=== PATIENT | female | born 1950 | race Caucasian/White ===

== ENCOUNTER 2017-05-26 05:58 | Emergency (ER) | payer MEDICARE, OTHER ==
--- NOTE | 2017-05-26 06:11 | ED Physician Documentation ---
PD HPI LOWER EXT INJURY - Stated complaint Stated Complaint: RT FOOT INJURY - Chief complaint Chief Complaint: Ext Problem - History obtained from History obtained from: Patient - History of Present Illness PD HPI LOW EXT INJURY LOCATION: Right, Foot Type of injury: Blunt / blow Where injury occurred: Home Timing - onset: How many hours ago (1) Timing - details: Abrupt onset Pain level now: 6 Improved by: Rest Worsened by: Moving, Palpating Associated symptoms: Swelling Contributing factors: Prior ortho surgery Recently seen: Not recently seen - Additional information Additional information: patient complains of right foot pain. Approximately one hour prior to arrival, door fell off of its hinges and landed on patients right foot. Review of Systems Skin: reports: Laceration (s) Musculoskeletal: reports: Extremity pain, Extremity swelling, Pain with weight bearing Neurologic: denies: Focal weakness, Numbness PD PAST MEDICAL HISTORY - Past Medical History Past Medical History: Yes Cardiovascular: Hypertension Respiratory: None Neuro: None Endocrine/Autoimmune: Type 2 diabetes GI: None SECURE SOFTWARE ASSESSOR: None : None HEENT: None Psych: None Musculoskeletal: None Derm: None - Past Surgical History Past Surgical History: No - Present Medications Home Medications: Ambulatory Orders Medication Instructions Recorded Confirmed Cephalexin [Keflex] 500 mg PO Q6HR 5 Days #20 capsule 05/26/17 HYDROcod/ACETAM 5/325 [[place] 5/325] 1 - 2 ea PO Q6H PRN #15 tablet 05/26/17 - Allergies Allergies/Adverse Reactions: Allergies Allergy/AdvReac Type Severity Reaction Status Date / Time banana AdvReac Anaphylaxis Verified 05/26/17 06:09 Sulfa (Sulfonamide AdvReac Itching Verified 05/26/17 06:09 Antibiotics) - Social History Does the pt smoke?: No Smoking Status: Never smoker Does the pt drink ETOH?: No Does the pt have substance abuse?: No - Immunizations Immunizations are current?: Yes - POLST Patient has POLST: No PD ED PE NORMAL - Vitals Vital signs reviewed: Yes - General General: Alert and oriented X 3, No acute distress, Well developed/nourished - Neuro Neuro: No motor deficit, No sensory deficit PD ED PE EXPANDED - Extremities Extremities: Tenderness, Limited ROM, Swelling, Bruising, Laceration Feet visual: 1 - bruising, swelling, tenderness 2 - laceration (1 cm) 3 - laceration (0.5 cm) Results - Vitals Vitals: Vital Signs - 24 hr 05/26/17 05/26/17 05/26/17 06:04 07:48 09:10 Temperature 35.6 C L 36.4 C L 35.2 C L Heart Rate 85 77 56 L Respiratory 17 16 20 Rate Blood Pressure 165/99 H 169/97 H 112/63 O2 Saturation 98 99 96 Oxygen O2 Source Room air - Rads (name of study) right foot xrays Radiology: Prelim report reviewed, See rad report PD MEDICAL DECISION MAKING - ED course Complexity details: reviewed results, re-evaluated patient, considered differential, d/w patient, d/w [facility] operations consultant (Dr. Sutherland (recommends traction to improve alignment of 2nd toe fracture, then daja tape toes 1-3, post-op shoe, discharge and &/7. also 5 days of abx. coverage)) ED course: prior to daja tape and splint, patient given 2 vicodin. after adequate time for this to take effect, I applied gentle traction to second toe and this resulted in lengthening of the toe and good alignment visually. tech applied steri-strips to the two lacerations. patient says she tried to use crutches prior to coming to ED and felt very unsteady on them. thus, a cane was provided prior to discharge. post op shoe placed as well. patient had brief nausea and one episode emesis after vicodin, thus given TL zofran Departure - Departure Disposition: 01 Home, Self Care Clinical Impression: Fracture of foot Condition: Good Instructions: ED Fx Foot Follow-Up: Stefano Sutherland MD [Provider Admit Priv/Credential] - Within 3 Days Prescriptions: Cephalexin [Keflex] 500 mg PO Q6HR 5 Days #20 capsule HYDROcod/ACETAM 5/325 [[place] 5/325] 1 - 2 ea PO Q6H PRN #15 tablet PRN Reason: Pain Discharge Date/Time: 05/26/17 09:15
--- NOTE | 2017-05-26 07:08 | XRAY Preliminary Report ---
Exam: XR FOOT 3 VIEW RT IMPRESSION: 1. Comminuted, displaced fracture of the first distal phalanx. 2. Comminuted, displaced, intra-articular fracture of the second proximal phalanx. 3. Comminuted intra-articular fracture of the third proximal phalanx. 4. Nondisplaced fracture of the distal third metatarsal. [facility] SITE ID: [id number]
--- NOTE | 2017-05-26 07:11 | XRAY Report ---
EXAM: RIGHT FOOT RADIOGRAPHY EXAM DATE: 05/26/2017 06:49 AM. CLINICAL HISTORY: Injury, pain, swelling, tenderness. Door fell on foot. COMPARISON: None. TECHNIQUE: 3 views. FINDINGS: Bones: Comminuted, displaced fractures through the midportion of the first distal phalanx and base of the second proximal phalanx. Comminuted fracture of the third proximal phalanx without significant d isplacement. Nondisplaced fracture of the distal third metatarsal with mild angulation. The second an d third proximal phalangeal fractures extend to the articular surface of the MTP joint. Surgical scre ws in the distal first and second metatarsals are without evidence of loosening or failure. Joints: No dislocation. Soft Tissues: Soft tissue swelling about the forefoot. IMPRESSION: 1. Comminuted, displaced fracture of the first distal phalanx. 2. Comminuted, displaced, intra-articular fracture of the second proximal phalanx. 3. Comminuted intra-articular fracture of the third proximal phalanx. 4. Nondisplaced fracture of the distal third metatarsal. [facility] Referring Provider Line: [phone] SITE ID: [id number]
[2017-05-26] MEDS ORDERED: HYDROcod/ACETAM 5/325 MG TABLET PO STA (07:51)
[2017-05-26] MEDS ORDERED: CEPHALEXIN 250 MG CAPSULE PO STA (07:53)
[2017-05-26] MEDS ORDERED: HYDROcod/ACETAM 5/325 MG TABLET ONE (07:56)
[2017-05-26] MEDS ORDERED: CEPHALEXIN 250 MG CAPSULE PO ONE (08:00)
[2017-05-26] MEDS ORDERED: ONDANSETRON ODT 4 MG TABLET TL STA (08:45)
[2017-05-26] MEDS ORDERED: ONDANSETRON ODT 4 MG TABLET ONE (08:53)
[2017-05-26 09:11] VITALS: BP 112/63
== END 2017-05-26 09:15 | disposition home or self-care (01) ==
LOC: ED 05:58
DX: S92.901A Unspecified fracture of right foot, initial encounter for closed fracture (principal); W22.8XXA Striking against or struck by other objects, initial encounter; Y92.009 Unspecified place in unspecified non-institutional (private) residence as the place of occurrence of the external cause; I10 Essential (primary) hypertension; E11.9 Type 2 diabetes mellitus without complications
CPT/HCPCS: 73630; 99283; A9270; Q0162

== ENCOUNTER 2017-10-09 15:46 | Outpatient (CLI) | payer MEDICARE, OTHER ==
--- NOTE | 2017-10-09 16:35 | XRAY Report ---
EXAM: CHEST RADIOGRAPHY EXAM DATE: 10/09/2017 04:04 PM. CLINICAL HISTORY: COUGH X 3WEEKS, CRACKLES ON RIGHT, EVAL FOR PNEUMO. COMPARISON: None. TECHNIQUE: 2 views. FINDINGS: Lungs/Pleura: There is mild lower lobe airway thickening. No consolidative process or focal pneumonia . Negative for pleural effusion and pneumothorax. Mediastinum: Heart and mediastinal contours are unremarkable. Other: None. IMPRESSION: Lower lobe airway thickening without consolidative focal pneumonia. [facility] Referring Provider Line: [phone] SITE ID: [id number]
== END 2017-10-09 15:47 | disposition home or self-care (01) ==
LOC: DI.S 15:46
PROVIDERS: ATTEND Registered Nurse
DX: R05 Cough (principal); R09.89 Other specified symptoms and signs involving the circulatory and respiratory systems
CPT/HCPCS: 71046

== ENCOUNTER 2017-11-23 10:14 | Outpatient (CLI) | payer MEDICARE, OTHER ==
--- NOTE | 2017-11-23 12:42 | XRAY Report ---
TWO VIEW CHEST: 11/23/2017 CLINICAL INDICATION: Bronchitis. COMPARISON: 10/09/2017. FINDINGS: Frontal and lateral views of the chest demonstrate a normal cardiac silhouette. The lungs are clear. No effusion or pneumothorax is present. IMPRESSION: NORMAL CHEST. TD: 11/23/2017 12:42
== END 2017-11-23 10:15 | disposition home or self-care (01) ==
LOC: DI.S 10:14
PROVIDERS: ATTEND Registered Nurse
DX: J20.9 Acute bronchitis, unspecified (principal)
CPT/HCPCS: 71046

== ENCOUNTER 2018-04-22 08:50 | Outpatient (CLI) | payer MEDICARE, OTHER ==
[2018-04-22 11:27] LABS: HB2 TOTAL 15.1 g/dL; HEMOGLOBIN A1C 1.01 g/dL; HEMOGLOBIN A1C % 8.3 % (4.6-6.2)
== END 2018-04-22 08:51 | disposition home or self-care (01) ==
LOC: LAB.F 08:50
PROVIDERS: ATTEND Registered Nurse
DX: E11.21 Type 2 diabetes mellitus with diabetic nephropathy (principal); I10 Essential (primary) hypertension; E78.1 Pure hyperglyceridemia
CPT/HCPCS: 36415; 82043; 83036

== ENCOUNTER 2019-07-14 13:38 | Outpatient (CLI) | payer MEDICARE, OTHER ==
--- NOTE | 2019-07-18 08:50 | DEXA Report ---
Reason: ASYMPTOMATIC MENOPAUSAL STATE Procedure Date: 07/14/2019 Accession Number: [id number] / [id number] Procedure: DEX - Dexa Spine and/or Hip CPT Code: Final Report FULL RESULT: EXAM: Dexa Spine and/or Hip DATE: 07/14/2019 3:16 PM CLINICAL HISTORY: ASYMPTOMATIC MENOPAUSAL STATE TECHNIQUE: Dual energy x-ray absorptiometry (DXA) was performed on a [employer] System. Regions measured are the AP Spine, femoral neck, and if needed forearm. COMPARISON: None. In accordance with the International Society for Clinical Densitometry (ISCD) guidelines, data from previous exams may be reanalyzed using current recommendations and techniques. This is done to allow a more accurate basis for comparison with the current study. FINDINGS: The data for the lumbar spine is as follows: BMD (g/cm/cm) T-SCORE Z-SCORE REGION L1 0.859 -2.3 -1.0 L2 0.873 -2.7 -1.4 L3 L4 TOTAL 0.866 -2.5 -1.2 NOTE: All evaluable vertebrae are used for classification The data for the hip is as follows: BMD (g/cm/cm) T-SCORE Z-SCORE REGION Neck 0.789 -1.8 -0.3 TOTAL 0.994 -0.1 1.1 NOTE: The femoral neck or total proximal femur, whichever is lowest, is used for classification. IMPRESSION: THE WHO CLASSIFICATION BASED ON THE INTERNATIONAL REFERENCE STANDARD IS OSTEOPOROSIS. THE FRACTURE RISK IS HIGH. Please note that 2 lumbar levels had to be excluded due to decreased mobility and that bone density in the hip suggest that the lumbar region measurement may be an over estimation. Given this, consideration for additional DEXA imaging of the forearm to increase confidence in the result could be considered if clinically indicated. RECOMMENDATION: Patients with diagnosis of osteoporosis or osteopenia should have regular bone mineral density assessment. For those eligible for Medicare, routine testing is allowed once every 2 years. Testing frequency can be increased for patients who have rapidly progressing disease or for those who are receiving medical therapy to restore bone mass. COMMENT: World Health Organization (WHO) definitions for osteoporosis and osteopenia: NORMAL BMD: T-score at -1.0 or higher, fracture risk is low OSTEOPENIA BMD: T-score between -1.0 and -2.5, fracture risk is increased. OSTEOPOROSIS BMD: T-score at -2.5 or lower, fracture risk is high. National Osteoporosis Foundation recommends: 1. Obtain adequate dietary calcium (at least 1200 mg per day) and vitamin D (400-800 international units per day). 2. Participate, as appropriate, in regular weightbearing and muscle-strengthening exercise. 3. Avoid tobacco use and reduce alcohol and caffeine intake. 4. For more detailed information see the website at www.NOF.org.
== END 2019-07-14 13:39 | disposition home or self-care (01) ==
LOC: DI 13:38
PROVIDERS: ATTEND Registered Nurse
DX: M81.0 Age-related osteoporosis without current pathological fracture (principal); Z78.0 Asymptomatic menopausal state
CPT/HCPCS: 77080

== ENCOUNTER 2019-07-14 13:40 | Outpatient (CLI) | payer MEDICARE, OTHER ==
--- NOTE | 2019-07-18 10:22 | Mammography Report ---
Reason: ROUTINE MAMMO Procedure Date: 07/14/2019 Accession Number: [id number] / [id number] Procedure: YANETH - Screening Mammo w/Dejon CPT Code: Final Report FULL RESULT: EXAM: Screening Mammo w/Dejon DATE: 07/14/2019 2:36 PM CLINICAL HISTORY: Screening encounter. Family history of breast cancer in the mother. TECHNIQUE: (B) - Bilateral CC and MLO views were obtained. COMPARISON: 01/19/2017 through 12/06/2015. PARENCHYMAL PATTERN: (D) - The breast(s) demonstrate(s) heterogeneously dense fibroglandular parenchyma. FINDINGS: Redemonstration of bilateral isodense nodules with coarse calcifications which have increased over time without interval growth in size and without architectural distortion. Greater than two-year stability and absence of microcalcifications or architectural distortion, typically benign. There are no suspicious masses, calcifications, or areas of distortion. IMPRESSION: Benign findings. BI-RADS category 2. RECOMMENDATION: (ANNUAL) - Recommend routine annual screening mammography. BI-RADS CATEGORY: (2) - Benign Findings. STANDARD QUALIFYING STATEMENTS: 1. This examination was not reviewed with the aid of Computer-Aided Detection (CAD). 2. A negative or benign imaging report should not preclude biopsy if clinically suspicious findings are present. 3. Dense breasts may obscure an underlying neoplasm. 4. This examination was reviewed with the aid of 3D breast imaging (tomosynthesis).
== END 2019-07-14 13:41 | disposition home or self-care (01) ==
LOC: DI 13:40
PROVIDERS: ATTEND Registered Nurse
DX: Z12.31 Encounter for screening mammogram for malignant neoplasm of breast (principal); Z80.3 Family history of malignant neoplasm of breast
CPT/HCPCS: 77063; 77067

== ENCOUNTER 2020-05-12 08:47 | Outpatient (CLI) | payer MEDICARE, OTHER ==
--- NOTE | 2020-05-12 17:54 | Ultrasound Report ---
PROCEDURE: Abdomen Complete INDICATIONS: HEP C, CHRONIC TECHNIQUE: Real-time scanning was performed of the abdominal and retroperitoneal organs, with image documentatio n. COMPARISON: None. FINDINGS: Liver: Diffuse increased echogenicity of the liver.. Liver length of 18.9 cm. Gallbladder: Gallbladder is distended containing multiple gallstones. Gallbladder wall thickness of 0 .3 cm. Biliary ducts: Intrahepatic bile ducts are non-dilated. Extrahepatic bile duct caliber measures mm. Normal is 6-7 mm or less in diameter, or 10 mm or less post-cholecystectomy. Pancreas: Visualized portions of the pancreas are sonographically normal. Spleen: Spleen is normal in size and homogeneous in echotexture. Kidneys: Kidneys are normal in size and echotexture. Right kidney measures 12.5 cm long; left kidne y measures 1.6 cm long. No hydronephrosis or nephrolithiasis. No solid masses. Aorta: Visualized aorta is normal in caliber at less than 3 cm. Calcific and noncalcific atheroscle rosis of the abdominal aorta. Iliacs: Proximal common iliac arteries are normal in caliber at less than 2.5 cm. IVC: Intrahepatic inferior vena cava is patent. Miscellaneous: No free abdominal fluid. IMPRESSION: 1. Cholelithiasis without findings of acute cholecystitis. 2. Diffuse increased echogenicity of the mildly enlarged liver, most commonly seen in the setting of hepatic steatosis, but can also be seen with fibrosis. 3. Calcific noncalcific atherosclerosis of the abdominal aorta. Reviewed by: Imtiaz Lieberman on 05/12/2020 4:52 PM FELIPA Approved by: Imtiaz Lieberman on 05/12/2020 4:52 PM FELIPA Station ID: [id number]
== END 2020-05-12 08:48 | disposition home or self-care (01) ==
LOC: DI 08:47
PROVIDERS: ATTEND Internal Medicine
DX: B18.2 Chronic viral hepatitis C (principal); K80.20 Calculus of gallbladder without cholecystitis without obstruction; I70.0 Atherosclerosis of aorta
CPT/HCPCS: 76700

== ENCOUNTER 2021-11-21 13:38 | Outpatient (CLI) | payer MEDICARE, OTHER | END 2021-11-21 13:39 | disposition home or self-care (01) | LOC: LAB.S 13:38 | PROVIDERS: ATTEND Registered Nurse | DX: E78.2 Mixed hyperlipidemia (principal) | CPT/HCPCS: 36415; 84478 ==

== ENCOUNTER 2022-04-22 12:52 | Outpatient (CLI) | payer MEDICARE, OTHER ==
--- NOTE | 2022-04-23 12:50 | Mammography Report ---
BILATERAL DIGITAL SCREENING MAMMOGRAM 3D/2D: 04/22/2022 CLINICAL: Routine screening. Family history of breast cancer. Comparison is made to exams dated: 07/14/2019 mammogram - [facility] and 01/19/2017 mammogram - outside location. Both breasts are heterogeneously dense, which may obscure small masses (category c / 51-75% glandula r tissue). There are new grouped fine calcifications in the right breast central to the nipple middle depth. There also are new grouped amorphous punctate calcifications in the right breast at 6 o'clock posteri or depth. No other significant masses, calcifications, or other findings are seen in either breast. IMPRESSION: INCOMPLETE: NEEDS ADDITIONAL IMAGING EVALUATION The new grouped fine calcifications in the right breast central to the nipple middle depth are indete rminate. Additional views with possible ultrasound are recommended. The new grouped amorphous punctate calcifications in the right breast at 6 o'clock posterior depth ar e indeterminate. Additional views with possible ultrasound are recommended. Based on the Tyrer Cuzick model (a risk assessment model) the patients lifetime risk is 9.1% and her 10 year risk is 7.5%. According to the ACR, ACS, and NCCN guidelines, an annual breast MRI exam silvia g with mammogram is recommended if the patients lifetime risk is 20% or greater. This exam was interpreted at Station ID: [id number]. NOTE: For mammograms, a report in lay terms will be sent to the patient. Approximately 15% of breast malignancies will not be visualized mammographically. In the management of a palpable breast mass, a negative mammogram must not discourage biopsy of a clinically suspicious lesion. Electronically Signed By: Jennifer domingo/josé miguel:04/22/2022 17:21:52 ACR BI-RADS Category 0: Incomplete 3340F PARENCHYMAL PATTERN: (D) - The breast(s) demonstrate(s) heterogeneously dense fibroglandular pargeovanyy j luis. BI-RADS CATEGORY: (0) - 0 Mammo and [place] [id number] Immediate follow-up LATERALITY: (B)
== END 2022-04-22 12:53 | disposition home or self-care (01) ==
LOC: DI.S 12:52
PROVIDERS: ATTEND Registered Nurse
DX: Z12.31 Encounter for screening mammogram for malignant neoplasm of breast (principal); R92.1 Mammographic calcification found on diagnostic imaging of breast; Z80.3 Family history of malignant neoplasm of breast

== ENCOUNTER 2022-05-14 12:26 | Outpatient (CLI) | payer MEDICARE, OTHER ==
--- NOTE | 2022-05-15 11:29 | Mammography Report ---
UNILATERAL RIGHT DIGITAL DIAGNOSTIC MAMMOGRAM 3D/2D WITH MAGNIFICATION: 05/14/2022 CLINICAL: Patient returns for magnification views of microcalcifications in the right breast. Comparison is made to exams dated: 04/22/2022 mammogram, 07/14/2019 mammogram - [facility], and 01/19/2017 mammogram - outside location. The right breast is heterogeneously dense, which may obscure small masses (category c / 51-75% gland ular tissue). There are grouped fine calcifications in the right breast central to the nipple middle depth. There also are grouped amorphous punctate calcifications in the right breast at 6 o'clock posterior d epth. No other significant masses or calcifications are seen in the breast. IMPRESSION: PROBABLY BENIGN The grouped fine calcifications in the right breast central to the nipple middle depth are probably b enign. A follow-up mammogram in 6 months is recommended. The grouped amorphous punctate calcifications in the right breast at 6 o'clock posterior depth are pr obably benign. A follow-up mammogram in 6 months is recommended. A follow-up mammogram in 6 months is recommended to demonstrate stability. Based on the Tyrer Cuzick model (a risk assessment model) the patients lifetime risk is 8.5% and her 10 year risk is 7.7%. According to the ACR, ACS, and NCCN guidelines, an annual breast MRI exam silvia g with mammogram is recommended if the patients lifetime risk is 20% or greater. This exam was interpreted at Station ID: [id number]. NOTE: For mammograms, a report in lay terms will be sent to the patient. Approximately 15% of breast malignancies will not be visualized mammographically. In the management of a palpable breast mass, a negative mammogram must not discourage biopsy of a clinically suspicious lesion. Electronically Signed By: Olaf Patel M.D., jr/josé miguel:05/14/2022 12:57:50 ACR BI-RADS Category 3: Probably benign 3343F PARENCHYMAL PATTERN: (D) - The breast(s) demonstrate(s) heterogeneously dense fibroglandular parenchy ma. BI-RADS CATEGORY: (3) - 3 Mammogram [id number] 6 month follow-up LATERALITY: (B)
== END 2022-05-14 12:27 | disposition home or self-care (01) ==
LOC: DI 12:26
PROVIDERS: ATTEND Registered Nurse
DX: R92.1 Mammographic calcification found on diagnostic imaging of breast (principal)

== ENCOUNTER 2022-06-05 12:32 | Outpatient (CLI) | payer MEDICARE, OTHER ==
--- NOTE | 2022-06-05 14:50 | XRAY Report ---
PROCEDURE: Toe(s) RT INDICATIONS: PRIORS 2017/WOUND OF 4TH TOE RIGHT FOOT/PER PT LOTS OF WALKING ABOUT 2 MONTHS AGO WOUND /CALLUS DORSAL 4TH TOE AND PAINFUL WALKING SINCE/PER PROVIDER:EVALUATE FOR ANY EVIDENCE OF OSTEOMYELI TIS TECHNIQUE: 3 views of the right fourth toe(s) acquired. COMPARISON: None FINDINGS: Bones: No fractures or dislocations. No suspicious bony lesions. There are screws within the first and second digits. Soft tissues: No suspicious soft tissue densities. IMPRESSION: No acute fracture. No osseous lesion. If symptoms and/or clinical suspicion for pathology continue, f urther assessment with repeat plain films, or advanced imaging (e.g., CT, MRI, or bone scan) is recom mended for further assessment. Reviewed by: Sami Gong MD on 06/05/2022 2:48 PM PDT Approved by: Sami Gong MD on 06/05/2022 2:48 PM PDT Station ID: [id number]
== END 2022-06-05 12:33 | disposition home or self-care (01) ==
LOC: DI.S 12:32
PROVIDERS: ATTEND Registered Nurse
DX: E11.621 Type 2 diabetes mellitus with foot ulcer (principal); L97.519 Non-pressure chronic ulcer of other part of right foot with unspecified severity

== ENCOUNTER 2022-09-16 15:01 | Outpatient (CLI) | payer MEDICARE, OTHER ==
--- NOTE | 2022-09-16 18:57 | Ultrasound Report ---
PROCEDURE: Duplex Lwr Ext Arterial RT INDICATIONS: TYPE 2 DIABETES MELLITUS WITH FOOT ULCER TECHNIQUE: Color and pulse Doppler interrogation was performed of the right lower extremity arterial system, wit h image documentation. COMPARISON: None FINDINGS: Common femoral artery: 86 cm/sec, with biphasic flow. Deep femoral artery: 46 cm/sec, with biphasic flow. Proximal superficial femoral artery: 108 cm/sec, with triphasic flow. Mid superficial femoral artery: 84 cm/sec, with triphasic flow. Distal superficial femoral artery: 83 cm/sec, with biphasic flow. Popliteal artery: 78 cm/sec, with triphasic flow. Posterior tibial artery: 56 cm/sec, with triphasic flow. Anterior tibial artery/dorsalis pedis: 91/43 cm/sec, with triphasic/monophasic flow. [place]-scale imaging description: Calcified plaque. No significant stenosis from the common femoral th rough the popliteal. IMPRESSION: 1. No evidence of inflow stenosis. 2. No stenosis identified from the common femoral through the popliteal. 3. 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 Reviewed by: Luigi Wilson MD on 09/16/2022 6:55 PM PST Approved by: Luigi Wilson MD on 09/16/2022 6:55 PM PST Station ID: [id number]
== END 2022-09-16 15:02 | disposition home or self-care (01) ==
LOC: DI 15:01
PROVIDERS: ATTEND Family Medicine
DX: E11.621 Type 2 diabetes mellitus with foot ulcer (principal); L97.512 Non-pressure chronic ulcer of other part of right foot with fat layer exposed; M20.5X1 Other deformities of toe(s) (acquired), right foot; L53.9 Erythematous condition, unspecified

== ENCOUNTER 2022-12-11 09:36 | Outpatient (CLI) | payer MEDICARE, OTHER ==
--- NOTE | 2022-12-12 11:09 | Mammography Report ---
UNILATERAL RIGHT DIGITAL DIAGNOSTIC MAMMOGRAM 3D/2D WITH MAGNIFICATION: 12/11/2022 CLINICAL: Patient returns for a 6 month follow up of the right breast. Comparison is made to exams dated: 05/14/2022 mammogram, 04/22/2022 mammogram, and 07/14/2019 mammogram - [facility]. The right breast is heterogeneously dense, which may obscure small masses (category c / 51-75% glandu lar tissue). There are stable grouped calcifications in the right breast central to the nipple middle depth. There also are stable grouped calcifications in the right breast at 6 o'clock posterior depth. No other significant masses or calcifications are seen in the breast. IMPRESSION: PROBABLY BENIGN The stable grouped calcifications in the right breast central to the nipple middle depth are probably benign. A follow-up mammogram in 6 months is recommended. The stable grouped calcifications in the right breast at 6 o'clock posterior depth are probably benig n. A follow-up mammogram in 6 months is recommended. Based on the Tyrer Cuzick model (a risk assessment model) the patients lifetime risk is 8.5% and her 10 year risk is 7.7%. According to the ACR, ACS, and NCCN guidelines, an annual breast MRI exam silvia g with mammogram is recommended if the patients lifetime risk is 20% or greater. This exam was interpreted at Station ID: [id number]. NOTE: For mammograms, a report in lay terms will be sent to the patient. Approximately 15% of breast malignancies will not be visualized mammographically. In the management of a palpable breast mass, a negative mammogram must not discourage biopsy of a clinically suspicious lesion. Electronically Signed By: Andrea Soto M.D. lc/:12/11/2022 10:27:43 ACR BI-RADS Category 3: Probably benign 3343F PARENCHYMAL PATTERN: (D) - The breast(s) demonstrate(s) heterogeneously dense fibroglandular parenrico dietz. BI-RADS CATEGORY: (3) - 3 Mammogram [id number] 6 month follow-up LATERALITY: (B)
== END 2022-12-11 09:37 | disposition home or self-care (01) ==
LOC: DI 09:36
PROVIDERS: ATTEND Registered Nurse
DX: R92.1 Mammographic calcification found on diagnostic imaging of breast (principal)

== ENCOUNTER 2023-06-22 11:14 | Outpatient (CLI) | payer MEDICARE, OTHER ==
--- NOTE | 2023-06-23 16:14 | Mammography Report ---
BILATERAL DIGITAL DIAGNOSTIC MAMMOGRAM 3D/2D WITH MAGNIFICATION: 06/22/2023 CLINICAL: Patient returns for 6 month follow up on right breast calcifications. Due for bilateral. Comparison is made to exams dated: 12/11/2022 mammogram, 05/14/2022 mammogram, 04/22/2022 mammogram, and 07/14/2019 mammogram - [facility]. Both breasts are heterogeneously dense, which may obscure small masses (category c / 51-75% glandular tissue). There are stable grouped calcifications in the right breast central to the nipple middle depth. There also are grouped calcifications in the right breast at 6 o'clock posterior depth. No other significant masses, calcifications, or other findings are seen in either breast. IMPRESSION: PROBABLY BENIGN Right breast grouped calcifications central to the nipple middle depth and at 6 o'clock posterior dep th, stable since 05/14/2022. Findings are probably benign. Recommend follow-up mammogram in 12 months to demonstrate 2 year stability. Patient will be due for bilateral mammogram at that time. Findings and recommendations were conveyed to the patient during today's evaluation. Based on the Tyrer Cuzick model (a risk assessment model) the patients lifetime risk is 7.9% and her 10 year risk is 7.9%. According to the ACR, ACS, and NCCN guidelines, an annual breast MRI exam silvia g with mammogram is recommended if the patients lifetime risk is 20% or greater. This exam was interpreted at Station ID: [id number]. NOTE: For mammograms, a report in lay terms will be sent to the patient. Approximately 15% of breast malignancies will not be visualized mammographically. In the management of a palpable breast mass, a negative mammogram must not discourage biopsy of a clinically suspicious lesion. Electronically Signed By: Narcisa Bruner M.D., PH.D eb/:06/22/2023 12:29:11 ACR BI-RADS Category 3: Probably benign 3343F PARENCHYMAL PATTERN: (D) - The breast(s) demonstrate(s) heterogeneously dense fibroglandular pargeovanyy ma. BI-RADS CATEGORY: (3) - 3 Mammogram [id number] 12 month follow-up LATERALITY: (B)
== END 2023-06-22 11:15 | disposition home or self-care (01) ==
LOC: DI 11:14
PROVIDERS: ATTEND Registered Nurse
DX: R92.1 Mammographic calcification found on diagnostic imaging of breast (principal)

== ENCOUNTER 2023-11-19 15:17 | Outpatient (CLI) | payer MEDICARE, OTHER ==
--- NOTE | 2023-11-19 17:06 | XRAY Report ---
PROCEDURE: Toe(s) 2+V RT INDICATIONS: RIGHT 4TH TOE ULCER, OSTEOMYELITIS TECHNIQUE: 3 views of the fourth toe(s) acquired. COMPARISON: None. FINDINGS: Bones: No fractures or dislocations. No suspicious bony lesions. Interphalangeal osteoarthritis. N o definite bony erosion, although evaluation is suboptimal due to positioning. First and second digit osteotomies. Soft tissues: No suspicious soft tissue densities. IMPRESSION: No definite bony erosion of the fourth toe, although evaluation is suboptimal due to positioning. If there remains a high clinical concern, recommend MRI. Reviewed by: Mati Abdi MD on 11/19/2023 5:05 PM PDT Approved by: Mati Abdi MD on 11/19/2023 5:05 PM PDT Station ID: [id number]
== END 2023-11-19 15:18 | disposition home or self-care (01) ==
LOC: DI 15:17
PROVIDERS: ATTEND Family Medicine
DX: E11.621 Type 2 diabetes mellitus with foot ulcer (principal); M21.6X1 Other acquired deformities of right foot; M20.5X1 Other deformities of toe(s) (acquired), right foot; L97.516 Non-pressure chronic ulcer of other part of right foot with bone involvement without evidence of necrosis